=== PATIENT | female | born 1985 | race Caucasian/White ===

== ENCOUNTER 2022-04-26 21:20 | Emergency (ER) | payer BC ==
[2022-04-26] MEDS ORDERED: HYDROmorphone 1 MG/ML Syringe IM ONE (21:25)
== END 2022-04-26 22:48 | disposition home or self-care (01) ==
LOC: JP.ED 21:20
DX: S93.401A Sprain of unspecified ligament of right ankle, initial encounter (principal); X50.1XXA Overexertion from prolonged static or awkward postures, initial encounter
CPT/HCPCS: 73562; 73610; 96372; 99281; 99283; J1170